=== PATIENT | male | born 1955 | race Caucasian/White ===

== ENCOUNTER 2019-02-07 00:29 | Inpatient (IN) ==
--- NOTE | 2019-02-07 02:03 | Internal Med History&Physical ---
<Ki Miramontes - Last Filed: 02/07/19 04:11> Date of Encounter: 02/07/19 Time of Encounter: 02:03 Internal Medicine - H&P: HPI Chief complaint: epigastric pain Admitted From: Hospital to Hospital Transfer ([place]) Plans for Post Hospital Care: Home History of present illness: Mr. TERRELL is a 63 year old male with past medical history of CAD, hypothyroidism, carotid artery occlusion, BPH, hypertension, hyperlipidemia who presents from the [facility] for concerns of an arrhythmia. Patient states that he presented to his primary care physician at the [place] due to epigastric discomfort. Patient states that has been present for about 4 days and constant. Pain is worse after eating and is now resolved. He states he does struggle with reflux and his home antireflux agents to improve his sympto ms. He admits to little bit of nausea but no vomiting and states he has had normal bowel movements. At the [place], patient was noted to be tachycardic upon presentation EKG showed evidence of atrial flutter with a rate ranging from 100-150. He has no previous history of arrhythmias. He does take a daily aspirin for CAD but is on no anticoagulation. His most recent cardiac workup he states he received 1 stent in 1993 and experiences no chest pains ever. He denies any shortness of breath, diaphoresis. He also admits to recent illness, fevers, chills, urinary symptoms, joint pains outside at baseline, numbness. Patient was given 1 dose of Eliquis approximately 20/30 yesterday evening and transferred to [facility] for cardiology consultation. Remainder of labs at [place] shows WBC 8.1, hemoglobin 14.7, sodium 136, potassium 3.7, chloride 104, bicarbonate 27, BUNs/creatinine 22/1.39, glucose 173. Hepatic panel within normal limits. Chest x-ray shows possible cardiomegaly with no acute process. Also noted was bowel gas without obstructive pattern. Troponin was noted to be elevated at 0.5-9 and then 2.46 on repeat. Creatinine kinase was mildly elevated at 340 and BNP was 4000. At time of my interview, patient states that he continues to be asymptomatic. He states his abdominal discomfort has since resolved. He continues to deny any symptoms of chest pains, difficulty breathing, fevers, chills, diaphoresis. Patient states that he would like to return home but is willing to wait until cardiology consult is made the recommendations. Past medical history: As above. Documentation also notes diabetes but patient denies Past surgical history: Tonsillectomy, cardiac stent Social history: 1-1.5 pack per day smoker, denies alcohol use but states he was a heavy drinker prior to 2003, previous marijuana use prior to 2003. Family history: Lung cancer in mother, unknown father Past Med Surg Social Fam HX - Social History Smoking Status: Current some day smoker Alcohol use: none Drug use: none Internal Medicine - H&P: Meds Allergy/AdvReac Type Severity Reaction Status Date / Time atorvastatin Allergy Muscle Pain Verified 02/07/19 03:04 All Systems PM: A 10-system review of systems was performed and is negative for pertinent findings except as documented above in the HPI. Review of systems: - Constitutional: Denies fevers, chills, weight loss, generalized fatigue - Head/Neck: Denies VU, neck stiffness - EENT: Denies vision changes/blurriness, rhinorrhea, congestion, sore throat, odynaphagia - CVS: Denies chest pain, palpitations, MCLEOD, orthopnea, edema, PND, - Pulm: Denies SOB, cough, sputum, wheezing - GI: epigastric discomfort. Denies abdominal pain, anorexia, nausea, vomiting, diarrhea, constipation, melena - : Denies dysuria, increased frequency, urgency, hematuria, - Heme: Denies ease of bleeding or bruising - MSK: Denies joint pain, limited ROM - Skin: Denies rashes, ulcers, color changes, - Neuro: atmits to intermittent tingling of his hands. Denies VU, paresthesias, focal deficits, ataxia, - Constitutional Vitals: Temp Pulse Resp BP Pulse Ox 97.6 F 61 17 138/96 96 02/07/19 01:37 02/07/19 01:37 02/07/19 01:37 02/07/19 01:37 02/07/19 01:37 Exam: Gen.: Vitals noted. No acute distress. AAOx3, resting comfortably in bed. Morbidly obese HEENT: PERRL/EOMI, oropharynx clear, Normocephalic, atraumatic, MMM Cardiac: RRR, no murmur, +S1/S2, No BLE edema Pulmonary: CTA bilaterally, no wheezes, rales or rhonchi, equal chest expansion, unlabored breathing Abdomen: soft, nontender, BS noted, no guarding, no palpable HSM. Mild distention with possible fluid wave Skin: warm and dry, no visible lesions. MSK: ROM intact, no joint swelling noted, gait no assessed while in bed. Non tender calf or clubbing Neuro: A&Ox3, moves all extremities, no focal deficits, sensation intact Psych: Appropriate mood and behavior, AOx3 Internal Med - H&P Results - Labs CBC & Chem 7: 02/07/19 02:36 02/07/19 02:36 - Assessment and Plan (1) Atrial flutter Current Visit: Yes Status: Acute Assessment and plan: - New onset AFlutter on EKG at [place] - Patient denies previous history of arrythmia - Currently has converted back to NSR and rate controlled - Patient asymptomatic throughout - Given 1 dose of eliquis at [place] - CHADVASC 2-3 depending on if he is a diabetic - Inciting factor is unclear, possible pulmonary disease, possible ischemia, dehydration given his Creatinine. - K of 3.7. Will replace and check mag Plan - Cardiology consulted - Start heparin gtt at full dose starting at 0830 (12 hours after eliquis given) - Telemetry - Echocardiogram - Check TSH Qualifiers: Atrial flutter type: unspecified Qualified Code(s): I48.92 - Unspecified atrial flutter (2) NSTEMI (non-ST elevated myocardial infarction) Current Visit: Yes Status: Acute Assessment and plan: - Trop of 0.529. Was reportedly trended to 2.46 but I did not see this in the documentation - EKG shows new onset AFlutter with RVR at 98 and 125 - Repeat EKG shows return to NSR, possible LBBB and inverted Twaves in the septa l region - Patient's PMHx shows known CAD with 1 stent placed in 1993, patient remains on ASA - No previous workup in our system Plan - Cardiology has been consulted, appreciate recommendations - Trend troponins - Echocardiogram - Will start heparin gtt as above - Start aspirin and await rest of home meds to be comfirmed (3) Creatinine elevation Current Visit: Yes Status: Acute Assessment and plan: - BUN/Cr of 22/1.39 - No previous labs to determine baseline - Possible DEION but patient also has risk factors for CKD including ?DM, smoking - Patient reportedly cutting grass prior to admission. CK of 340 may indicate dehydration Plan - Get UA - Will trend labs, appears euvolemic on exam - Give gentle fluids in case of potential cardiac workup (4) Elevated glucose Current Visit: Yes Status: Acute Assessment and plan: - Glucose of 173 at [place] - Unclear if patient is diabetic - [place] document states yes but patient denies - Check A1c (5) CAD (coronary artery disease) Current Visit: Yes Status: Chronic Assessment and plan: - as above Qualifiers: Coronary Disease-Associated Artery/Lesion type: [place] artery [place] vs. transplanted heart: [place] heart Associated angina: without angina Qualified Code(s): I25.10 - Atherosclerotic heart disease of [place] coronary artery without angina pectoris (6) HTN (hypertension) Current Visit: Yes Status: Chronic Assessment and plan: - Well controlled at this time of 138/96 - Continue home meds once confirmed Qualifiers: Hypertension type: essential hypertension Qualified Code(s): I10 - Essential (primary) hypertension (7) HLD (hyperlipidemia) Current Visit: Yes Status: Chronic Assessment and plan: - per patient history - Check lipid panel - Home meds not yet confirmed, allergy to atrovastatin, consider lower intensity statin pending results Qualifiers: Hyperlipidemia type: unspecified Qualified Code(s): E78.5 - Hyperlipidemia, unspecified (8) Hypokalemia Current Visit: Yes Status: Acute Assessment and plan: - K of 3.7 at [place] - unclear if this was repleted. - Will repeat labs and replace as necessary - Check mag (9) DVT prophylaxis Current Visit: Yes Status: Acute Assessment and plan: - Given eliquis at [place], will start heparin gtt at 0830 per pharmacy recommendations - Time Spent With Patient Total time spent is greater than 50% in coordination of care (as documented) at patient's floor/unit and/or counseling patient: <Darrius Lyman - Last Filed: 02/07/19 06:06> Date of Encounter: 02/07/19 Time of Encounter: 05:05 - Constitutional Constitutional: no chills, no fever(s) - EENT Eyes: no change in vision Nose, mouth and throat: no nasal congestion, no sore throat - Cardiovascular Cardiovascular ROS IM: irregular heart rhythm, palpitations, no chest pain, no dyspnea, no dyspnea on exertion, no orthopnea, no paroxysmal nocturnal dyspnea - Respiratory Respiratory: no cough, no chest congestion - Gastrointestinal Gastrointestinal: abdominal pain (epigastric -- resolved), no diarrhea, no hematemesis, no hematochezia, no melena, no nausea, no vomiting - Genitourinary Genitourinary ROS male: no dysuria, no flank pain, no hematuria - Musculoskeletal Musculoskeletal ROS IM: no arthralgias, no back pain, no muscle cramps - Integumentary Integumentary IM: no rash, no jaundice - Neurological Neurological ROS: no dizziness, no focal weakness, no frequent falls, no headache(s) - Psychiatric Psychiatric: no anxiety, no depression - Endocrine Endocrine IM: no polydipsia, no polyuria - Allergic/Immunologic Allergic/Immunologic: no GI upset with certain foods - Constitutional Vitals: Temp Pulse Resp BP Pulse Ox 97.7 F 62 18 115/70 98 02/07/19 03:46 02/07/19 03:46 02/07/19 03:46 02/07/19 03:46 02/07/19 03:46 General appearance: Present: cooperative, A&O X 3, pleasant, no acute distress, answers questions appropriately - Head Head exam: Present: atraumatic, normal inspection - Eye Eye exam: Present: PERRL. Absent: scleral icterus Pupils: Present: normal accommodation - ENT ENT exam: Present: mucous membranes dry, normal exam, normal oropharynx - Neck Neck exam general surgery: Present: full ROM, supple, trachea midline. Absent: tenderness, nuchal rigidity, thyromegaly - Respiratory Respiratory exam: Present: CTAB. Absent: rales, rhonchi, wheezes - Cardiovascular Cardiovascular exam: Present: distant heart sounds, RRR, +S1, +S2. Absent: diastolic murmur, systolic murmur - GI/Abdominal GI/Abdominal exam: Present: normal bowel sounds, soft. Absent: guarding, hepatomegaly, mass, rebound, splenomegaly, tenderness - Extremities Exam Extremities exam: Present: full ROM, normal capillary refill, warm, radial pulses palpable and symmetrical. Absent: calf tenderness, pedal edema, tenderness - Back Exam Back exam: Absent: CVA tenderness (L), CVA tenderness (R) - Neurological Exam Neurological exam: Present: alert, CN II-XII intact, oriented X3, no focal deficits, strengths equal and symetr throughout - Psychiatric Psychiatric exam: Present: normal affect, normal mood - Skin Skin exam: Present: dry, intact, warm Internal Med - H&P Results - Labs CBC & Chem 7: 02/07/19 02:36 02/07/19 02:36 Labs: Short CBC 02/07/19 Range/Units 02:36 WBC 6.8 (4.3-11.1) K/mcL Hgb 13.4 (12.9-16.9) g/dL Hct 40.6 (37.5-50.1) % Plt Count 175 (140-400) K/mcL Neutrophils # 4.2 (1.6-8.9) K/mcL BMP 02/07/19 02:36 Sodium 138 Potassium 3.9 Chloride 102 Carbon Dioxide 29 BUN 21 Creatinine 1.38 H Glucose 121 H Calcium 9.4 Cardiac Enzymes 02/07/19 Range/Units 02:36 Troponin I 1.08 H* (< 0.04) ng/mL Liver Function 02/07/19 Range/Units 02:36 Total Bilirubin 0.4 (0.3-1.0) mg/dL AST 27 (13-39) Units/L ALT 29 (7-52) Units/L Alkaline Phosphatase 55 (34-104) Units/L Albumin 4.0 (3.5-5.7) g/dL - Time Spent With Patient Total time spent is greater than 50% in coordination of care (as documented) at patient's floor/unit and/or counseling patient: - Attending Attestation I discussed the patient [place], past medical history, review of systems, lab data, exam findings, and plan of care with Dr. Miramontes. I then saw and examined patient independently as well. Prior to his arrival from the [place], I fielded the phone call and transfer request from the [facility] staff physician requesting transfer. Patient reportedly presented there with vague epigastric pain which resolved quickly and atrial flutter/flutter which converted to normal sinus rhythm. Because of a rise in troponin, patient was transferred here for ongoing cardiac workup and intervention if necessary. Dr. Bailey has also been involved in the conversation and agreed with the plan of of care and transfer to [facility]. He remains chest pain-free and never has had any chest pain. His epigastric pain was short-lived and nonspecific. He denies any GI upset, GI blood loss, and/or gallbladder-type symptoms. He appears to remain in sinus rhythm at the present time. Patient did receive a dose of Eliquis last night about 8:30 PM. We will forego any further oral anti-coagulation We will resume/start heparin drip at roughly 8:30 this morning, which will be about 12 hours after his last anticoagulation dose. Cardiology has been consulted, and we will await further guidance and intervention per cardiology. Other than my comments above and documented exam findings, I agree with Dr. Merida's assessment and plan.
[2019-02-07] MEDS ORDERED: *HR* HYDROcodone/Acet 5/325 mg TABLET PO PRN (02:56)
[2019-02-07] MEDS ORDERED: Naloxone 0.4 MG/ML INJ IVP PRN (02:56)
[2019-02-07] MEDS ORDERED: Acetaminophen 325 MG TABLET PO PRN (02:56)
[2019-02-07 03:02] LABS: Basophils % 0.4 %; Eosinophils # 0.1 K/mcL (0.0-0.6); Eosinophils % 1.9 %; Hematocrit 40.6 % (37.5-50.1); Hemoglobin 13.4 g/dL (12.9-16.9); Immature Granulocytes % 0.4 % (0-4); Lymphocytes # 1.9 K/mcL (0.6-4.6); Lymphocytes % 28.2 %; Mean Corpuscular Hemoglobin 30.4 pg (28.0-33.3); Mean Corpuscular Volume 92.1 fL (83.0-100.0); Mean Platelet Volume 11.4 fL (9.4-12.4); Monocytes # 0.6 K/mcL (0.0-1.3); Monocytes % 8.1 %; Neutrophils # 4.2 K/mcL (1.6-8.9); Platelet Count 175 K/mcL (140-400); Red Blood Count 4.41 M/mcL (4.19-5.50); Red Cell Distribution Width 13.5 % (11.5-14.5); White Blood Count 6.8 K/mcL (4.3-11.1)
[2019-02-07 03:22] LABS: Alanine Aminotransferase 29 Units/L (7-52); Albumin/Globulin Ratio 1.8 (1.1-2.2); Alkaline Phosphatase 55 Units/L (34-104); Aspartate Amino Transferase 27 Units/L (13-39); BUN/Creatinine Ratio 15 (6-26); Bilirubin,Total 0.4 mg/dL (0.3-1.0); Blood Urea Nitrogen 21 mg/dL (8-23); Calcium 9.4 mg/dL (8.6-10.3); Carbon Dioxide 29 mEq/L (23-29); Chloride 102 mEq/L (98-107); Cholesterol 133 mg/dL (< 200); Globulin 2.2 g/dL (2.4-3.5); Glucose 121 mg/dL (70-105); Magnesium 1.8 mg/dL (1.6-2.6); Osmolality,Calculated 290 (280-300); Potassium 3.9 mEq/L (3.5-5.1); Sodium 138 mEq/L (136-145); Total Protein 6.2 g/dL (6.4-8.9); Triglycerides 213 mg/dL (< 150); eGFR For African Americans > 60 (> 60); eGFR For Non-African Americans 52 (> 60)
[2019-02-07] MEDS ORDERED: 0.9 % Sodium Chloride 1,000 ML IVC SCH (03:30)
[2019-02-07 03:40] LABS: Chol/HDL Ratio 4.4 (0-4.9); HDL Cholesterol 30 mg/dL (40-59); LDL Cholesterol,Calculated 60 mg/dL (0-99)
[2019-02-07 04:25] LABS: Thyroid Stimulating Hormone 5.703 mcIU/mL (0.340-5.600)
--- NOTE | 2019-02-07 06:34 | Cardiology Consult Note ---
Date of Encounter: 02/07/19 Time of Encounter: 06:35 Assessment and Plan (1) NSTEMI (non-ST elevated myocardial infarction) Current Visit: Yes Status: Acute I believe this is demand ischemia from his atrial flutter w RVR. Once he converted to sinus rhythm, he has felt much better. Limited TTE to assess for EF and WMA. Fu as outpatient as long as TTE ok and he is ambulating without symptoms. ED precaution and no sudden strenuous activity discussed with the patient. (2) Atrial flutter Current Visit: Yes Status: Acute Converted to SR. Low dose BB. CV2 score of 2, recommend chronic AC and will resume Eliquis. Qualifiers: Atrial flutter type: unspecified Qualified Code(s): I48.92 - Unspecified atrial flutter (3) CAD (coronary artery disease) Current Visit: Yes Status: Chronic Continue asa, statin, BB as tolerated. Qualifiers: Coronary Disease-Associated Artery/Lesion type: [place] artery [place] vs. transplanted heart: [place] heart Associated angina: without angina Qualified Code(s): I25.10 - Atherosclerotic heart disease of [place] coronary artery without angina pectoris Discussion w patient/family: The assessment and plan as outlined above was discussed with the patient and/or family members who expressed understanding and agreement. All questions were answered. Thank you for involving us in the care of your patient. Please call with any questions. History of Present Illness Consult date: 02/07/19 Consult reason: NSTEMI Chief complaint: epigastric pain History of present illness: Mr. Christian is a 63 year old male with CAD, hypothyroidism, carotid artery occlusion, BPH, hypertension, hyperlipidemia who presents from the [facility] for concerns of an abnormal EKG. Patient states that he presented to his primary care physician at the [place] due to epigastric discomfort. Patient states that has been present for about 4 days and intermittent, present when eating associated with reflux but not brought on by physical exertion. He states he does struggle with reflux and his home antireflux agents to improve his symptoms. He admits to little bit of nausea but no vomiting. At the [place], patient was noted to be tachycardic upon presentation EKG showed evidence of atrial flutter with a rate ranging from 100-150. He has no previous history of arrhythmias. He does take a daily aspirin for CAD but is on no anticoagulation. His most recent cardiac workup he states he received 1 stent in 1993 and experiences no chest/jaw/arm discomfort. He denies any shortness of breath, diaphoresis. Patient was given 1 dose of Eliquis approximately 20 yesterday evening and transferred to [facility] for cardiology consultation. Remainder of labs at [place] shows WBC 8.1, hemoglobin 14.7, sodium 136, potassium 3.7, chloride 104, bicarbonate 27, BUNs/creatinine 22/1.39, glucose 173. Hepatic panel within normal limits. Chest x-ray shows possible cardiomegaly with no acute process. Also noted was bowel gas without obstructive pattern. Troponin was noted to be elevated at 0.5-9 and then 2.46 on repeat. Creatinine kinase was mildly elevated at 340 and BNP was 4000. He notes he has been asymptomatic since yesterday around 5pm and feels great and has been ambulating the hallways. Past Med Surg Social Fam HX - Social History Smoking Status: Current some day smoker Alcohol use: none Drug use: none Medications and Allergies Allergy/AdvReac Type Severity Reaction Status Date / Time atorvastatin Allergy Muscle Pain Verified 02/07/19 03:04 All Systems Review: The remainder of the systems were reviewed and are negative - Constitutional Constitutional: no chills, no fever(s) - EENT Eyes: no blurred vision, no loss of vision Nose, mouth and throat: no bleeding gums, no epistaxis - Cardiovascular Cardiovascular: no chest pain at rest, no chest pain with exertion - Respiratory Respiratory: no hemoptysis, no wheezing - Gastrointestinal Gastrointestinal: no hematemesis, no hematochezia - Genitourinary Genitourinary: no hematuria, no nocturia - Musculoskeletal Musculoskeletal: no abnormal gait, no back pain - Integumentary Integumentary: no erythema, no unusual bruising - Neurological Neurological: no syncope, no tingling - Psychiatric Psychiatric: no hallucinations, no panic attacks - Hematological/Lymphatic Hematologic/Lymphatic: no easy bleeding, no easy bruising Physical Examination Vital Signs, Last 4 Hours Temp Pulse Resp BP Pulse Ox 02/07/19 03:46 97.7 F 62 18 115/70 98 General: Conversant HEENT: Atraumatic Neck: No JVD Cardiac: Reg Rate and Rhythm Lungs: Normal Breath Sounds Neuro: Alert and responsive Abdomen: Soft Skin: No rashes noted on visualized skin Musculoskeletal: No Chest Wall Tenderness Extremities: No Edema Results 02/07/19 02:36 02/07/19 02:36 Lab Results 02/07/19 02/07/19 02/07/19 02:36 02:36 02:36 WBC 6.8 Hgb 13.4 Hct 40.6 Plt Count 175 Sodium 138 Potassium 3.9 Chloride 102 Carbon Dioxide 29 BUN 21 Creatinine 1.38 H Glucose 121 H Calcium 9.4 Magnesium 1.8 Total Bilirubin 0.4 AST 27 ALT 29 Alkaline Phosphatase 55 Troponin I 1.08 H* TSH 5.703 H - EKG Interpretation EKG results cardiology: personally reviewed (atrial flutter with variable response) Consult Discharge Plan - Plan Referrals: [facility] [Primary Care Provider] -
[2019-02-07 07:08] LABS: Bilirubin,Urine Negative (Negative); Blood,Urine Negative (Negative); Clarity,Urine Clear (Clear); Color,Urine Yellow (Yellow); Glucose,Urine (UA) Normal (Normal); Ketones,Urine Negative (Negative); Leukocyte Esterase,Urine Negative (Negative); Nitrite,Urine Negative (Negative); Protein,Urine Negative (Neg-Trace); Specific Gravity,Urine 1.019 (1.010-1.025); Urobilinogen,Urine Normal (Normal)
[2019-02-07 07:25] LABS: Sodium, Urine 75.6 mEq/L
[2019-02-07] MEDS ORDERED: *HR* Heparin 5,000 UNIT/ML VIAL IVP ONE (08:30)
[2019-02-07] MEDS ORDERED: Heparin 25,000 UNIT/250 ML D5W 25,000 UNIT/250 ML IV.SOLN IVC SCH (08:30)
[2019-02-07] MEDS ORDERED: *HR* Heparin 5,000 UNIT/ML VIAL IVP PRN ×2 (08:30)
[2019-02-07 08:36] LABS: Heparin anti-factor XA UFH 0.3 IU/mL (0.30-0.70)
[2019-02-07 08:37] LABS: INR 1.1; Prothrombin Time 12.7 Seconds (9.4-12.1)
[2019-02-07 08:39] LABS: Activated Partial Thrombo Time 38.3 Seconds (26.0-36.0)
[2019-02-07] MEDS ORDERED: Pantoprazole 40 MG VIAL IVP SCH (09:00)
[2019-02-07] MEDS ORDERED: Aspirin Enteric Coated 81 MG Tablet PO SCH (09:00)
[2019-02-07 11:15] VITALS: BP 143/90
[2019-02-07] MEDS ORDERED: Apixaban 5 MG TABLET PO SCH (11:15)
[2019-02-07] MEDS ORDERED: Perflutren Lipid Microsphere 1.3 ML in 0.9 % Sodium Chloride 8.7 ML IVP ONE (11:18)
[2019-02-07 11:38] LABS: Estimated Average Glucose 157 mg/dl
--- NOTE | 2019-02-07 13:48 | Event Note ---
Date of Encounter: 02/07/19 Time of Encounter: 13:40 - Cardiology Event Note WMA on TTE. Recommend he stay for LHC (Saturday), if he is unwilling then will schedule him for LHC next week.
--- NOTE | 2019-02-07 14:24 | Event Note ---
Date of Encounter: 02/07/19 Time of Encounter: 14:22 Patient was evaluated by cardiology and underwent limited echo which showed segmental wall motion abnormality. He does require left heart catheterization which will be done on Saturday. Patient however did not wish wanting to stay here to Saturday. He does understand the risks obtaining appropriate treatment for non-ST elevation [place]. He has signed paperwork and wishes to leave the hospital AGAINST MEDICAL ADVICE. I will send prescription for aspirin, metoprolol and Eliquis. Discussed with cardiology and they will try to arrange for left heart catheterization in the next week.
[2019-02-08] MEDS ORDERED: Metoprolol XL (24 HR) Succ 25 MG TAB.ER.24H PO SCH (09:00)
== END 2019-02-07 14:53 | disposition left against medical advice (07) | DRG 281 ==
LOC: 2ANU 01:24 → SUATTDRO 01:24
PROVIDERS: ADMIT Pediatrics; ATTEND Internal Medicine